=== PATIENT | female | born 1995 | race Caucasian/White ===

== ENCOUNTER 2018-11-13 06:00 | Day surgery (SDC) | payer BC ==
[~2018-11-13] VITALS: Ht 175.3 cm; Wt 69.0 kg
--- NOTE | ~2018-11-13 | OR ---
[facility] [address] [facility] [place], [place] [address] Draft DATE OF OPERATION: 11/13/2018 SURGEON: Robb Beauchamp MD PREOPERATIVE DIAGNOSIS: Right hymenal mass. POSTOPERATIVE DIAGNOSIS: Right hymenal mass. Pending pathology. PROCEDURE PERFORMED: Excision of right hymenal mass. ANESTHESIA: MAC. ESTIMATED BLOOD LOSS: Minimal. DRAINS: None. INDICATIONS AND FINDINGS: The patient is a 23-year-old female, 1, para 1, currently using the Nexplanon for control, who has been having increasing swelling and pain in the hymenal area, which has gotten significantly worse over the last several months. She has had a mass in this area, which was incidentally increasing in size as well. At the time of surgery, the mass had a very broad base and was approximately 1.5 cm in length and 1 cm in width. It did appear to be cystic. It was in the midportion of the right hymenal area. DESCRIPTION OF PROCEDURE: The patient was prepped and draped in the dorsal lithotomy position. A weighted speculum was placed and Allis clamps were used on the hymen both above and below the mass for traction. The knife was used to circumscribe the vaginal skin around the mass. Following this, the cyst was shelled out from the underlying tissue with Metzenbaum scissors. It was removed intact. Following this, the defect in the hymen was closed with a running suture of 3-0 Vicryl Rapide. The defect was very superficial. In the at the conclusion, the area was injected with 0.5% Marcaine plain to a volume of 10 mL. Retractors were removed. The patient tolerated the procedure well and she was taken to PATIENT NAME: SEAN BURROWS OPERATIVE REPORT DATE OF : [birth year] REPORT #: [id number] PHYSICIAN: ROBB BEAUCHAMP MD PCP: LAKESHA SCHULTZ REPORT IS CONFIDENTIAL AND NOT TO BE RELEASED WITHOUT AUTHORIZATION [address], [place] [address] Draft the recovery room in good condition. MD GREG Moraes/ADOLFOL /[id number] cc: JOSE ALBERTO Torres Copies: LAKESHA SCHULTZ ~ PATIENT NAME: SEAN BURROWS OPERATIVE REPORT DATE OF : [birth year] REPORT #: [id number] PHYSICIAN: ROBB BEAUCHAMP MD PCP: LAKESHA SCHULTZ REPORT IS CONFIDENTIAL AND NOT TO BE RELEASED WITHOUT AUTHORIZATION
[~2018-11-13 06:00] MED LIST: NEXPLANON68 MG SUB-Q
--- NOTE | 2018-11-13 07:47 | NUR ---
11/13/18 0747 Taryn Peterson 1627-PATIENT ARRIVED TO PACU ON 2L NC NONAROUSABLE. RR EVEN. SB. KIET PAD AND MESH UNDERWEAR IN PLACE CDI.
[2018-11-13] MEDS ORDERED: NORCO 5-325 TA1 EACH PO (08:05)
[2018-11-13] MEDS ORDERED: MOTRIN IB200 M1 PO (08:06)
== END 2018-11-13 08:50 | disposition home or self-care (01) ==
LOC: DS 06:00
PROVIDERS: Obstetrics & Gynecology
PROC: 0UBKXZZ Excision of Hymen, External Approach (ICD-10-PCS; principal; 2018-11-13 06:45)
DX: N89.8 Other specified noninflammatory disorders of vagina (principal); F17.210 Nicotine dependence, cigarettes, uncomplicated; F41.9 Anxiety disorder, unspecified; Z88.5 Allergy status to narcotic agent
CPT/HCPCS: 00940; 84703; J1100; J1885; J2250; J2405; J2704; J2765; J3010; J7120

== ENCOUNTER 2019-03-31 11:36 | Emergency (ER) | payer BC, OTHER ==
[~2019-03-31] VITALS: Ht 175.3 cm; Wt 69.0 kg
--- OUTSIDE RECORDS SUMMARY | ~2019-03-31 | XMS | Clinical Summary ---
Demographics + + + | Address | [address] [place] [address] | | | [place] [address] | + + + | Home Phone | | + + + | Preferred Language | Unknown | + + + | Marital Status | Single | + + + | Jehovah'S Witness Affiliation | 1009 | + + + | Race | Unknown | + + + | Ethnic Group | Unknown | + + + Author + + + | Author | [facility] | | | and [place] | + + + | Organization | [facility] | | | and [place] | + + + | Address | Unknown | + + + | Phone | Unavailable | + + + Support + + +---------+ + | Name | Relationship | Address | Phone | + + +---------+ + | Debby Stafford | ECON | Unknown | | + + +---------+ + | Chilo Kumar | ECON | Unknown | | + + +---------+ + Care Team Providers + +------+ + | Care Network Development Coordinator Name | Role | Phone | + +------+ + | No Physician | PCP | Unavailable | + +------+ + Allergies + + + + + + | Active Allergy | Reactions | Severity | Noted | Comments | | | | | Date | | + + + + + + | Codeine | Nausea And Vomiting | Medium | 04/27/20 | | | | | | 17 | | + + + + + + | Oxycodone | Nausea And Vomiting | Medium | 06/20/20 | | | | | | 18 | | + + + + + + Medications + + + +---------+------+------+-------+ | Medication | Sig | Dispensed | Refills | Star | End | Statu | | | | | | t | Date | s | | | | | | Date | | | + + + +---------+------+------+-------+ | | Take 10-15 mLs by | 250 mL | 0 | 12/2 | | Activ | | HYDROcodone-acetamin | mouth every 4 hours | | | 8/20 | | e | | ophen (HYCET) | as needed for Pain. | | | 18 | | | | 7.5-325 mg/15 mL | | | | | | | | liquid | | | | | | | + + + +---------+------+------+-------+ Active Problems + + + | Problem | Noted Date | + + + | Chronic tonsillitis | 06/21/2018 | + + + | Smoker - Daily | 06/21/2018 | + + + | H/O UTI | 06/21/2018 | + + + | Chlamydia infection | 05/01/2017 | + + + + + | Overview: Medication completed. Test of cure today | + + + + + | emt intermediate current use of hormonal contraceptive | 01/24/2017 | + + + | Biceps tendonitis | 06/24/2013 | + + + Immunizations + + + + | Name | Dates Previously Given | Next Due | + + + + | TDAP, (ADOL/ADULT) | 01/26/2016 | | + + + + Family History + + +------+ + | Medical History | Relation | Name | Comments | + + +------+ + | No known problems | Brother | | | + + +------+ + | No known problems | Daughter | | | + + +------+ + | Hypertension | Father | | | + + +------+ + | No known problems | Maternal | | | | | Aunt | | | + + +------+ + | No known problems | Maternal | | | | | Grandfath | | | | | er | | | + + +------+ + | Breast cancer | Maternal | | | | | Grandmoth | | | | | er | | | + + +------+ + | No known problems | Maternal | | | | | Uncle | | | + + +------+ + | No known problems | Mother | | | + + +------+ + | No known problems | Other | | | + + +------+ + | No known problems | Paternal | | | | | Aunt | | | + + +------+ + | Heart attack | Paternal | | | | | Grandfath | | | | | er | | | + + +------+ + | Other (see comment) | Paternal | | | | | Grandfath | | | | | er | | | + + +------+ + | Ovarian cancer | Paternal | | | | | Grandmoth | | | | | er | | | + + +------+ + | No known problems | Paternal | | | | | Uncle | | | + + +------+ + | No known problems | Sister | | | + + +------+ + | No known problems | Son | | | + + +------+ + + +------+--------+ + | Relation | Name | Status | Comments | + +------+--------+ + | Brother | | | | + +------+--------+ + | Daughter | | | | + +------+--------+ + | Father | | | | + +------+--------+ + | Maternal Aunt | | | | + +------+--------+ + | Maternal Grandfather | | | | + +------+--------+ + | Maternal Grandmother | | | | + +------+--------+ + | Maternal Uncle | | | | + +------+--------+ + | Mother | | | | + +------+--------+ + | Other | | | | + +------+--------+ + | Paternal Aunt | | | | + +------+--------+ + | Paternal Grandfather | | | Heart Bypass | + +------+--------+ + | Paternal Grandmother | | | | + +------+--------+ + | Paternal Uncle | | | | + +------+--------+ + | Sister | | | | + +------+--------+ + | Son | | | | + +------+--------+ + Social History + +-------+ +--------+------+ | Tobacco Use | Types | Packs/Day | Years | Date | | | | | Used | | + +-------+ +--------+------+ | Never Smoker | | | | | + +-------+ +--------+------+ + +---+---+---+ | Smokeless Tobacco: | | | | | Never Used | | | | + +---+---+---+ + + | Tobacco Cessation: Counseling Given: No | + + + + +---------+ + | Alcohol Use | Drinks/We | oz/Week | Comments | | | ek | | | + + +---------+ + | Yes | 1 Cans | 0.6 | | | | of beer | | | + + +---------+ + + + + | Sex Assigned at | Date Recorded | | | | + + + | Not on file | | + + + + + + + | Job Start Date | Occupation | Industry | + + + + | Not on file | Not on file | Not on file | + + + + + + + + | Travel History | Travel Start | Travel End | + + + + + + | No recent travel history available. | + + Last Filed Vital Signs + + + + | Vital Sign | Reading | Time Taken | + + + + | Blood Pressure | 97/54 | 06/21/2018 1230 PST | + + + + | Pulse | 50 | 06/21/2018 1230 PST | + + + + | Temperature | 36.8 C (98.2 F) | 06/21/2018 0951 PST | + + + + | Respiratory Rate | 15 | 06/21/2018 1100 PST | + + + + | Oxygen Saturation | 99% | 06/21/2018 1230 PST | + + + + | Inhaled Oxygen | - | - | | Concentration | | | + + + + | Weight | 68.4 kg (150 lb 12.7 | 06/21/2018719 PST | | | oz) | | + + + + | Height | 175.3 cm (5' 9") | 06/21/2018719 PST | + + + + | Body Mass Index | 22.27 | 06/21/2018719 PST | + + + + Plan of Treatment + + + + + | Health Maintenance | Due Date | Last Done | Comments | + + + + + | Vaccine: HPV (1 - | | | | | Female 3-dose | 9 | | | | series) | | | | + + + + + | Vaccine: Influenza | | | | | (#1) | 9 | | | + + + + + | Primary Care | | 05/01/2017 | | | Outreach (Low Risk) | 9 | | | + + + + + | Cervical Cancer | | 12/04/2016, 12/04/2016, | | | Screening (Pap) | 0 | 10/06/2014 | | + + + + + | Vaccine: | | 01/26/2016 | | | Dtap/Tdap/Td (2 - | 6 | | | | Td) | | | | + + + + + Results Not on filefrom Last 3 Months Insurance + +--------+ +--------+ +---------+--------+ | Payer | Benefi | Subscriber | Effect | Phone | Address | Type | | | t Plan | ID | ellie | | | | | | / | | Dates | | | | | | Group | | | | | | + +--------+ +--------+ +---------+--------+ | [place] | [id number] | | [phone] | | [place] | | | [place] | [id number] | 014-Pr | 9 | | | | | | | esent | | | | + +--------+ +--------+ +---------+--------+ | BCBS | BCBS | [id number] | 06/25/19 | | | PPO | | | OOS | [id number] | 18-Pre | | | | | | PPO | | sent | | | | + +--------+ +--------+ +---------+--------+ | [employer] | MODA | [id number] | | [phone] | | Medica | | MEDICAID HMO | HEALTH | | 017-Pr | 1 | | id | | | MDCD | | esent | | | | | | [place]MO [place] | | | | | | + +--------+ +--------+ +---------+--------+ | [place] | MEDICA | [id number] | 06/21/ | [phone] | | Medica | | | [place] | | 2018-P | 2 | | id | | | PLUS | | resent | | | | + +--------+ +--------+ +---------+--------+ + +--------+ +--------+ + + | Guarantor Name | Accoun | Relation to | Date | Phone | Billing Address | | | t Type | Patient | of | | | | | | | | | | + +--------+ +--------+ + + | Keisha Franz | Person | Self | [birth year] | [address] | | [place] | al/Fam | | 1995 | [facility] | [place], [place] | | | [place] | | | 4 (Home) | [phone] | + +--------+ +--------+ + + | Keisha Franz | Person | Self | [birth year] | [phone] | | [place] | al/Fam | | 1995 | | [place], [place] | | | [place] | | | 4 (Home) | [address] | + +--------+ +--------+ + + Advance Directives Patient has advance care planning documents on file. For more information, please contact:[facility] [place] [address]
--- OUTSIDE RECORDS SUMMARY | ~2019-03-31 | XMS | Clinical Summary ---
Demographics + + + | Address | [address] [place] [address] | | | [place] [address] | + + + | Home Phone | | + + + | Preferred Language | Unknown | + + + | Marital Status | Single | + + + | Sikhism Affiliation | 1009 | + + + | Race | Unknown | + + + | Ethnic Group | Unknown | + + + Author + + + | Author | [facility] | | | and [place] | + + + | Organization | [facility] | | | and [place] [...] Team Providers + +------+ + | Care Furniture Polisher Name | Role | Phone | + [...] | + + + + + | 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 | 01/24/2017 [...] +---------+--------+ | [place] | [id number] | | [phone] | | [place] | | | [place] | 7001 | 014-Pr | 9 | | | | | | | esent | | | | + +--------+ +--------+ +---------+--------+ | BCBS | BCBS | [id number] | 06/25/19 | | | PPO | | | [place] | 7001 | 18-Pre | | | | | | PPO | | sent | | | | + +--------+ +--------+ +---------+--------+ | [employer] | MODA | [id number] | | [phone] | | Medica | | MEDICAID HMO | HEALTH | | 017-Pr | 1 | | id | | | MDCD | | esent | | | | | | [place]MO [place] | | | | | | + +--------+ +--------+ +---------+--------+ | [employer]ICAID [place] | MEDICA | [id number] | 06/21/ | [phone] | | Medica [...] Person | Self | [birth year] | [address] | | [place] | al/Fam | | 1995 | [facility] | [place], [place] | | | [place] | | | 4 (Home) | [address] | + +--------+ +--------+ + + | Keisha Franz | Person | Self | [birth year] | | [address] | | [place] | al/Fam | | 1995 | | [place], [place] | | | [place] | | | 4 (Home) | [address] | + +--------+ +--------+ + + Advance Directives Patient has advance care planning documents on file. For more information, please contact:[facility] [address]
[~2019-03-31 11:36] MED LIST changes: +MOTRIN IB200 M1 PO; +NORCO 5-325 TA1 EACH PO
--- OUTSIDE RECORDS SUMMARY | 2019-03-31 11:38 | XMS ---
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 [place] VISIT COUNT (12 MO.) 1 DANIELE Elizondo TOTAL 1 NOTE: Visits indicate total known visits. ED/UCC VISIT TRACKING (12 MO.) 03/31/2019 11:36 DANIELE Smart [place] TYPE: Emergency COMPLAINT: - TOOTH PAIN INPATIENT VISIT TRACKING (12 MO.) No inpatient visits to display in this time frame [email or web address]
[2019-03-31] MEDS ORDERED: AMOXICILLIN500 MG PO (11:44)
== END 2019-03-31 12:30 | disposition home or self-care (01) ==
LOC: ED 11:36
DX: K08.89 Other specified disorders of teeth and supporting structures (principal)